=== PATIENT | male | born 1965 | race Caucasian/White ===

== ENCOUNTER → 2022-09-03 | Outpatient (CLI) | payer OTHER ==
[~2022-09-03] MED LIST: ALBIPROI INH; AMLO10 PO; Bactrim Ds Tab1 EACH PO; CIPR500 PO; CYCLOBENZAPRINE5 MG PO; FLUSAL1005 IH; FLUSAL2505 IH; IBUP800 PO; Lisinopril2.5 MG; MONT10T PO; MONT5TCH PO; OXYCODONE PO; Roxicodone5 MG PO
[2022-09-03 18:00] LABS: BASOPHILS ABSOLUTE AUTO 0.04 K/mm3 (0.00-0.23); BASOPHILS PERCENT AUTO 0 % (0-2); EOSINOPHILS ABSOLUTE AUTO 0.46 K/mm3 (0.00-0.68); EOSINOPHILS PERCENT AUTO 5 % (0-6); Hematocrit 47.7 % (37.0-53.0); Hemoglobin 16.7 g/dL (13.5-17.5); IMMATURE GRAN ABSOLUTE AUTO 0.03 K/mm3 (0.00-0.10); IMMATURE GRAN PERCENT AUTO 0 % (0-1); LYMPHOCYTES ABSOLUTE AUTO 2.09 K/mm3 (0.84-5.20); LYMPHOCYTES PERCENT AUTO 22 % (21-46); MONOCYTES ABSOLUTE AUTO 0.84 K/mm3 (0.16-1.47); MONOCYTES PERCENT AUTO 9 % (4-13); Mean Corpuscular HGB 30.1 pg (26.0-34.0); Mean Corpuscular Volume 86 fL (80-100); Mean Platelet Volume 8.7 fL (9.1-12.4); NEUTROPHILS ABSOLUTE AUTO 5.93 K/mm3 (1.96-9.15); NEUTROPHILS PERCENT AUTO 63 % (41-73); Platelet Count 285 K/mm3 (150-400); RDW Coefficient Variation 13.4 % (11.7-14.2); RDW Standard Deviation 41.8 fL (35.1-46.3); Red Blood Cell Count 5.54 M/mm3 (4.30-5.90); White Blood Cell Count 9.39 K/mm3 (4.00-11.30)
[2022-09-03 18:31] LABS: Bun/Creatinine Ratio 21.6 (12.0-20.0); Calcium, Blood 8.8 mg/dL (8.5-10.1); Creatinine, Blood 0.74 mg/dL (0.60-1.20); Potassium, Blood 4.1 mmol/L (3.5-5.5); Uric Acid, Blood 4.8 mg/dL (3.5-7.2)
== END | disposition home or self-care (01) ==
LOC: LAB SHORT 17:53
PROVIDERS: Physician Assistant
DX: M25.561 Pain in right knee (principal)
CPT/HCPCS: 80048; 84550; 85025

== ENCOUNTER 2025-08-25 02:21 | Emergency (ER) | payer OTHER ==
[~2025-08-25] VITALS: Ht 180.3 cm; Wt 102.1 kg
[2025-08-25] MEDS ORDERED: Ondansetron HCl 2 MG / ML 2ML Vial IV PRN (03:10)
[2025-08-25 03:23] LABS: BASOPHILS ABSOLUTE AUTO 0.04 K/mm3 (0.00-0.23); BASOPHILS PERCENT AUTO 1 % (0-2); EOSINOPHILS ABSOLUTE AUTO 0.17 K/mm3 (0.00-0.68); EOSINOPHILS PERCENT AUTO 2 % (0-6); Hematocrit 46.4 % (37.0-53.0); Hemoglobin 15.8 g/dL (13.5-17.5); IMMATURE GRAN ABSOLUTE AUTO 0.02 K/mm3 (0.00-0.10); IMMATURE GRAN PERCENT AUTO 0 % (0-1); LYMPHOCYTES ABSOLUTE AUTO 1.81 K/mm3 (0.84-5.20); LYMPHOCYTES PERCENT AUTO 21 % (21-46); MONOCYTES ABSOLUTE AUTO 0.96 K/mm3 (0.16-1.47); MONOCYTES PERCENT AUTO 11 % (4-13); Mean Corpuscular HGB Conc 34.1 g/dL (31.5-36.5); Mean Corpuscular Volume 86 fL (80-100); NEUTROPHILS ABSOLUTE AUTO 5.79 K/mm3 (1.96-9.15); NEUTROPHILS PERCENT AUTO 66 % (41-73); NRBC ABSOLUTE 0.00 K/mm3 (0.00-0.02); NRBC Auto 0.0 /100 WBC (0.0-0.2); Platelet Count 246 K/mm3 (150-400); RDW Coefficient Variation 14.0 % (11.7-14.2); RDW Standard Deviation 43.8 fL (35.1-46.3)
[2025-08-25 03:43] LABS: Alanine Aminotransfer (ALT/SGP 34.0 U/L (12-78); Albumin, Blood 3.8 g/dL (3.4-5.0); Albumin/Globulin Ratio 1.3 (0.8-1.8); Anion Gap 13.0 mmol/L (3-11); Aspartate Aminotrans (AST/SGOT 12.0 U/L (12-37); Bilirubin, Total 0.5 mg/dL (0.1-1.0); Blood Urea Nitrogen 6.0 mg/dL (8-24); CO2, Blood 23.0 mmol/L (21-32); Calcium, Blood 8.4 mg/dL (8.5-10.1); Chloride, Blood 105.0 mmol/L (98-108); Creatinine, Blood 0.67 mg/dL (0.60-1.20); Globulin, Blood 3.0 g/dL (2.2-4.0); Glucose, Blood 126.0 mg/dL (70-99); Potassium, Blood 3.3 mmol/L (3.5-5.5); Sodium, Blood 138.0 mmol/L (136-145); Total Protein, Blood 6.8 g/dL (6.4-8.2)
[2025-08-25 07:45] VITALS: BP 155/107
[2025-08-26] MEDS ORDERED: HYDROCODONE-AC1 EA19 PO (08:46)
[2025-08-26] MEDS ORDERED: Methocarbamol500 MG PO (08:48)
[2025-08-26] MEDS ORDERED: TADALAFIL20 M1 PO (08:48)
[2025-08-26] MEDS ORDERED: ALBUTEROL AER HFA (08:48)
[2025-08-26] MEDS ORDERED: METFORMIN HCL500 M2 PO (08:48)
[2025-08-26] MEDS ORDERED: LISI20 PO (08:52)
[2025-08-26] MEDS ORDERED: Crestor40 MG PO (08:56)
== END 2025-08-25 07:55 | disposition home or self-care (01) ==
LOC: ER 02:21
PROVIDERS: Emergency Medicine
DX: R07.89 Other chest pain (principal); I10 Essential (primary) hypertension; E78.5 Hyperlipidemia, unspecified; J45.909 Unspecified asthma, uncomplicated; Z88.8 Allergy status to other drugs, medicaments and biological substances; Z79.51 Long term (current) use of inhaled steroids; Z79.899 Other long term (current) drug therapy; Z59.89 Other problems related to housing and economic circumstances
CPT/HCPCS: 71046; 80053; 83690; 84484; 85025; 85379; 93005; 93010; 99285-25; J2405

== ENCOUNTER 2025-08-26 08:16 | Day surgery (SDC) | payer OTHER ==
[~2025-08-26] VITALS: Ht 180.3 cm; Wt 97.2 kg
[~2025-08-26 08:16] MED LIST changes: +Bupivacaine 0.5% W/EPI 1:200000 SDV 30 ML Vial ONE; +CeFAZolin Sodium 2,000 MG VIAL ONE; +Lidocaine 1%-Epineph 1:100000 20 ML MDV ONE
[2025-08-26] MEDS ORDERED: FentaNYL Citrate 50 MCG/ML 2 ML Injection ONE ×2 (08:21→11:22)
[2025-08-26] MEDS ORDERED: Ondansetron HCl 2 MG / ML 2ML Vial ONE (08:24)
[2025-08-26] MEDS ORDERED: Dexamethasone Sod Phos 10 MG/ML 1ML VIAL ONE (08:24)
[2025-08-26] MEDS ORDERED: Ketorolac Tromethamine 30mg Vial ONE (08:25)
[2025-08-26] MEDS ORDERED: HYDROCODONE-AC1 EA19 PO (08:46)
[2025-08-26] MEDS ORDERED: Methocarbamol500 MG PO (08:48)
[2025-08-26] MEDS ORDERED: ALBUTEROL AER HFA (08:48)
[2025-08-26] MEDS ORDERED: METFORMIN HCL500 M2 PO (08:48)
[2025-08-26] MEDS ORDERED: TADALAFIL20 M1 PO (08:48)
[2025-08-26] MEDS ORDERED: LISI20 PO (08:52)
[2025-08-26] MEDS ORDERED: Crestor40 MG PO (08:56)
--- NOTE | 2025-08-26 11:42 | NUR ---
08/26/25 1142 [employer] boo REPORT GIVEN TO JORDON JIMENEZ FOR STEP DOWN RECOVERY.
[2025-08-26] MEDS ORDERED: HYDROcodone 5-APAP 325 TAB ONE (12:18)
[2025-08-26 12:27] VITALS: BP 128/88
== END 2025-08-26 12:31 | disposition home or self-care (01) ==
LOC: ORSCSDS 08:16
PROVIDERS: Orthopaedic Surgery
PROC: 0SBC4ZZ Excision of Right Knee Joint, Percutaneous Endoscopic Approach (ICD-10-PCS; principal; 2025-08-26 09:50)
DX: M23.203 Derangement of unspecified medial meniscus due to old tear or injury, right knee (principal); M23.200 Derangement of unspecified lateral meniscus due to old tear or injury, right knee; I10 Essential (primary) hypertension; J44.89 Other specified chronic obstructive pulmonary disease; E11.9 Type 2 diabetes mellitus without complications; Z79.84 Long term (current) use of oral hypoglycemic drugs; Z79.899 Other long term (current) drug therapy
CPT/HCPCS: 82947; A9270; J0166; J0690; J1100; J1885; J2405; J2704; J3010; J7120